=== PATIENT | male | born 1985 | race American Indian/Alaskan Native ===

== ENCOUNTER 2019-06-29 11:24 | Emergency (ER) | payer SELFPAY ==
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
[2019-06-29 12:46] VITALS: BP 141/87
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
[2019-06-29] MEDS ORDERED: HYDROcodone/ACETAMINOPHEN 5-325 MG TAB PO ONE (14:43)
== END 2019-06-29 15:00 | disposition home or self-care (01) ==
LOC: ED 11:24
DX: M54.2 Cervicalgia (principal); M54.5 Low back pain; R51 Headache; F17.200 Nicotine dependence, unspecified, uncomplicated; F10.10 Alcohol abuse, uncomplicated; Z79.899 Other long term (current) drug therapy; V49.49XA Driver injured in collision with other motor vehicles in traffic accident, initial encounter; Y93.89 Activity, other specified; Y92.410 Unspecified street and highway as the place of occurrence of the external cause; Y99.8 Other external cause status
CPT/HCPCS: 70450; 72040; 72072; 72100